=== PATIENT | female | born 1960 | race Caucasian/White ===

== ENCOUNTER 2017-03-13 10:46 | Day surgery (SDC) | payer BC ==
[2017-03-12 09:13] VITALS: BMI 36.3
[~2017-03-13 10:46] MED LIST: LACTATED RINGERS 1,000 ML IV SCH
[2017-03-13 11:15] VITALS: RESP 16; TEMP 97
[2017-03-13] MEDS ORDERED: LIDOCAINE 1% 20 ML VIAL (10MG/ML) FOR IV START INTRADERMA ONE (11:20)
[2017-03-13] MEDS ORDERED: PROPOFOL 10 MG/ML 20 ML VIAL IV ONE (11:57)
--- NOTE | 2017-03-13 12:23 | P.PCN ---
Date of Procedure: 03/13/17 Preoperative Diagnosis: Postoperative Diagnosis: Procedure(s) Performed: Procedure: Colonoscopy and polypectomy. Preoperative diagnosis: Screening for neoplasia, patient has history of polyps. Postoperative diagnosis: Small cecal polyp snared but no large polyps or cancer. Preparation: HalfLytely prep. Sedation: Was provided by anesthesia. Brief clinical history: The patient is a 56-year-old female who is scheduled for this evaluation because of history of polyps. Her last exam was in May 2012. The patient has no abdominal complaints, bleeding or anemia. Procedure: With the patient on her left lateral decubitus position and after informed consent and adequate sedation, the perianal area was inspected and it did not show any fissures or fistulas. There were no masses felt on digital rectal examination. The Olympus CFQ 160L video colonoscope was then inserted in the rectum in the usual fashion and advanced to the cecum. There was a small polyp in the cecum which I snared and retrieved by suction but there were no large polyps or cancer. The mucosa appeared healthy. No obvious diverticular disease or other pathology. The patient tolerated the procedure well. Plan: The patient was reassured. She will follow-up with you as planned and I recommended repeat exam in 5 years. Implants: Indications for Procedure: Operative Findings: Description of Procedure:
[2017-03-13 12:40] VITALS: BP 123/81; PULSE 74
== END 2017-03-13 13:07 | disposition home or self-care (01) ==
LOC: ORWHC2ENDO 10:46
DX: Z12.11 Encounter for screening for malignant neoplasm of colon (principal); D12.0 Benign neoplasm of cecum; Z86.010 Personal history of colon polyps; K21.9 Gastro-esophageal reflux disease without esophagitis; J45.909 Unspecified asthma, uncomplicated; M19.90 Unspecified osteoarthritis, unspecified site; K58.9 Irritable bowel syndrome, unspecified; E07.9 Disorder of thyroid, unspecified; Z79.899 Other long term (current) drug therapy; Z79.51 Long term (current) use of inhaled steroids; Z79.82 Long term (current) use of aspirin; Z88.1 Allergy status to other antibiotic agents; Z88.7 Allergy status to serum and vaccine
CPT/HCPCS: 88305; 45385; J2704

== ENCOUNTER → 2019-08-27 | Outpatient (CLI) | payer BC ==
--- NOTE | 2019-08-27 10:26 | US ---
EXAMINATION TYPE: US abdomen complete DATE OF EXAM: 08/27/2019 COMPARISON: CT 2013, & US 2014 CLINICAL HISTORY: R11.0 nausea. EXAM MEASUREMENTS: Liver Length: 10.9 cm Gallbladder Wall: 0.3 cm CBD: 0.5 cm Spleen: 10.2 cm Right Kidney: 11.3 x 4.3 x 4.7 cm Left Kidney: 11.5 x 4.5 x 5.4 cm Technically difficult study due to patient body habitus and midline bowel gas. Pancreas: not visualized due to midline bowel gas Liver: wnl Gallbladder: No stones seen Evidence for sonographic Campbell's sign: No CBD: wnl Spleen: wnl Right Kidney: No hydronephrosis or masses seen Left Kidney: No hydronephrosis or masses seen Upper IVC: wnl Abd Aorta: wnl The liver is homogenous. The intrahepatic portion of the IVC and proximal abdominal aorta are within normal limits. There is no evidence of cholelithiasis. Common bile duct is unremarkable. Suboptima l evaluation of pancreas on the images saved due to patient's body habitus and overlying bowel gas. The spleen is unremarkable. Kidneys are symmetric and free of hydronephrosis. No renal lesions are seen. IMPRESSION: Slightly suboptimal study without suspicious acute findings seen.
== END | disposition home or self-care (01) ==
LOC: RADUSWWP 09:37
PROVIDERS: ATTEND Internal Medicine
DX: R11.0 Nausea (principal)
CPT/HCPCS: 76700

== ENCOUNTER → 2019-09-14 | Outpatient (CLI) | payer BC ==
--- NOTE | 2019-09-15 11:30 | MM ---
Reason for exam: screening (asymptomatic). Last mammogram was performed 3 years and 3 months ago. History: Patient is postmenopausal and is nulliparous. Family history of breast cancer in 2 paternal aunts. Physical Findings: A clinical breast exam by your physician is recommended on an annual basis and results should be correlated with mammographic findings. MG Screening Mammo w CAD Bilateral CC and MLO view(s) were taken. Prior study comparison: June 14, 2016, bilateral MG screening mammo w CAD. June 14, 2015, bilateral MG screening mammo w CAD. The breast tissue is heterogeneously dense. This may lower the sensitivity of mammography. No significant changes when compared with prior studies. ASSESSMENT: Benign, BI-RAD 2 RECOMMENDATION: Routine screening mammogram of both breasts in 1 year.
== END ==
LOC: RADMAMWWP 14:08
PROVIDERS: ATTEND Internal Medicine
DX: Z12.31 Encounter for screening mammogram for malignant neoplasm of breast (principal)
CPT/HCPCS: 77067

== ENCOUNTER → 2020-10-30 | Outpatient (CLI) | payer BC ==
--- NOTE | 2020-10-30 18:43 | BD ---
EXAMINATION TYPE: Axial Bone Density DATE OF EXAM: 10/30/2020 COMPARISON: 06.14.2016 CLINICAL HISTORY: 60 YR OLD FEMALE....ICD-10 CODE: M89.9 DISORDER OF BONE Height: 64 Weight: 194 FRAX RISK QUESTIONS: Glucocorticoids (More than 3mos): YES (Ex: prednisone, prednisolone, methylprednisolone, dexamethasone, and hydrocortisone). History of Fracture in Adulthood: YES RISK FACTORS HISTORY OF: HX OF RT TIB FIB FX, Diet low in dairy products/other sources of calcium: YES, LACTOSE INTOLERANT Postmenopausal woman: YES AT ABOUT 51 YRS OLD Hyperparathyroidism: NO Adrenal Insufficiency: NO MEDICATIONS: Prednisone or other steroids: YES, FOR ASTHMA Thyroid Medications: YES, SYNTHROID, FOR ABOUT SINCE AGE 16 YRS OLD Additional Medications: BETA LUCIO, BP MEDS, BUPROPION, LEXAPRO, REFLUX MEDS, VIT D AND CALCIUM Additional History: HEART TROUBLE, HYPERTENSION, REFLUX, EXAM MEASUREMENTS: Bone mineral densitometry was performed using the Unocoin System. Bone mineral density as measured about the Lumbar spine is: ----- L1-L4(G/cm2): 1.069 T Score Values are as follows: ----- L1: -1.5 ----- L2: -1.5 ----- L3: -0.1 ----- L4: -0.8 ----- L1-L4: -0.9 Bone mineral density has: Increased 1.4% SINCE...06.14.2016 STUDY Bone mineral density about the R hip (g/cm2): 0.726 Bone mineral density about the L hip (g/cm2): 0.810 T Score values are as follows: -----R Neck: -2.6 -----L Neck: -2.3 -----R Total: -2.2 -----L Total: -1.6 Bone mineral density has: Decreased -5.8% SINCE....:06.14.2016 STUDY FRAX%s: THERE IS A 29.9% CHANCE FOR A MAJOR OSTEOPOROTIC FX AND A 7.2% FOR HIP......PROBABILITY FO R FX IN 10 YRS TIME IMPRESSION: Osteoporosis (T Score less than -2.5). There is increased fracture risk and therapy is usually indicated based on age. Re-Screen 1-2 years. NOTE: T-SCORE=SD OF THE YOUNG ADULT MEAN.
== END | disposition home or self-care (01) ==
LOC: RADMAMWWP 09:29
PROVIDERS: ATTEND Internal Medicine
DX: M81.0 Age-related osteoporosis without current pathological fracture (principal)
CPT/HCPCS: 77067; 77080

== ENCOUNTER → 2021-12-04 | Outpatient (CLI) | payer BC ==
--- NOTE | 2021-12-07 09:44 | MM ---
Reason for exam: screening (asymptomatic). Last mammogram was performed 1 year and 1 month ago. History: Patient is postmenopausal and is nulliparous. Family history of breast cancer in 2 paternal aunts. Physical Findings: A clinical breast exam by your physician is recommended on an annual basis and results should be correlated with mammographic findings. MG Screening Mammo w CAD Bilateral CC and MLO view(s) were taken. Prior study comparison: October 30, 2020, bilateral MG screening mammo w CAD. September 14, 2019, bilateral MG screening mammo w CAD. The breast tissue is heterogeneously dense. This may lower the sensitivity of mammography. No significant changes when compared with prior studies. ASSESSMENT: Benign, BI-RAD 2 RECOMMENDATION: Routine screening mammogram of both breasts in 1 year.
== END | disposition home or self-care (01) ==
LOC: RADMAMWWP 15:15
PROVIDERS: ATTEND Internal Medicine
DX: Z12.31 Encounter for screening mammogram for malignant neoplasm of breast (principal)
CPT/HCPCS: 77067

== ENCOUNTER 2022-08-11 11:48 | Emergency (ER) | payer BC ==
[2022-08-11 11:59] VITALS: PULSE 102; RESP 20; TEMP 97
[2022-08-11 12:03] VITALS: BP 91/60
--- NOTE | 2022-08-11 12:04 | ED ---
Upper Extremity HPI - General Source: patient, RN notes reviewed Mode of arrival: ambulatory Limitations: no limitations <Greg Sue - Last Filed: 08/11/22 12:03> <Maurisio Block - Last Filed: 08/11/22 13:12> - General Chief Complaint: Extremity Injury, Upper Stated Complaint: rt wrist injury Time Seen by Provider: 08/11/22 12:01 - History of Present Illness Initial Comments: 62-year-old female presents emergency Department with chief complaint of fall, right wrist injury. Patient recent fracture of this area and saw Dr. Dawson Patient states that she tripped and fell onto her wrist and had increasing pain. Patient presented emergency department with complaints of right wrist pain no head injury no loss conscious. (Greg Sue) - Related Data Home Medications Medication Instructions Recorded Confirmed Escitalopram [Lexapro] 10 mg PO HS 05/25/14 03/13/17 Fluticasone Propionate [Flovent 1 puff INHALATION BID 05/25/14 03/13/17 Hfa 110mcg] buPROPion HCL [Wellbutrin SR] 200 mg PO QAM 05/25/14 03/13/17 Albuterol Inhaler [Ventolin Hfa 1 - 2 puff INHALATION Q6HR PRN 03/12/17 03/13/17 Inhaler] Aspirin 81 mg PO DAILY 03/12/17 03/13/17 Calcium Carbonate/Vitamin D3 2 each PO DAILY 03/12/17 03/13/17 [Calcium 600-Vit D3 500 Softgel] Levothyroxine Sodium [Levoxyl] 50 mcg PO QAM 03/12/17 03/13/17 Metoprolol Succinate (ER) [Toprol 25 mg PO QAM 03/12/17 03/13/17 Xl] Montelukast Sodium [Singulair] 10 mg PO HS 03/12/17 03/13/17 Omeprazole 20 mg PO HS 03/12/17 03/13/17 Previous Rx's Medication Instructions Recorded Ibuprofen [Motrin] 600 mg PO Q6HR PRN #20 tab 08/11/22 Allergies Allergy/AdvReac Type Severity Reaction Status Date / Time erythromycin base Allergy Unknown Verified 03/13/17 11:04 [Erythromycin Base] influenza virus vaccine, Allergy Rash/Hives Verified 03/13/17 11:04 specific [Influenza Virus Vacc,Specific] Tetanus Vaccines and Toxoid Allergy Rash/Hives Verified 03/13/17 11:04 [Tetanus Vaccines & Toxoid] lactose intolerant AdvReac Abdominal Uncoded 03/13/17 11:04 Pain Review of Systems ROS Other: All systems not noted in ROS Statement are negative. <Greg Sue - Last Filed: 08/11/22 12:03> ROS Other: All systems not noted in ROS Statement are negative. <Maurisio Block - Last Filed: 08/11/22 13:12> ROS Statement: Those systems with pertinent positive or pertinent negative responses have been documented in the HPI. Past Medical History Past Medical History: Asthma, GERD/Reflux, Osteoarthritis (OA), Pneumonia, Syncope, Thyroid Disorder Additional Past Medical History / Comment(s): Irregular heartbeat,IBS History of Any Multi-Drug Resistant Organisms: None Reported Past Surgical History: Adenoidectomy, Orthopedic Surgery, Tonsillectomy Past Anesthesia/Blood Transfusion Reactions: No Reported Reaction Past Psychological History: Anxiety, Depression Past Alcohol Use History: None Reported Past Drug Use History: None Reported - Past Family History Father Family Medical History: Cancer, Hypertension Additional Family Medical History / Comment(s): lung Mother Family Medical History: Cancer, Hypertension Additional Family Medical History / Comment(s): lung <RohiniGreg nelson - Last Filed: 08/11/22 12:03> General Exam Limitations: no limitations <Greg Sue - Last Filed: 08/11/22 12:03> General appearance: alert, anxious Head exam: Present: atraumatic, normocephalic, normal inspection Eye exam: Present: normal appearance, PERRL, EOMI. Absent: scleral icterus, conjunctival injection, periorbital swelling ENT exam: Present: normal exam, mucous membranes moist Neck exam: Present: normal inspection, full ROM. Absent: tenderness, meningismus, lymphadenopathy Respiratory exam: Absent: chest wall tenderness Cardiovascular Exam: Present: regular rate Extremities exam: Present: tenderness, normal capillary refill, other (MH the right upper extremity demonstrates tenderness palpation of the medial and lateral wrist with a distal radius ulna. No definitive displacement good capillary refill good sensory no deficits noted. Pulses are equal bilaterally no tenderness proximal to the right wrist. Examination right lowe). Absent: full ROM Back exam: Present: full ROM Neurological exam: Present: alert, oriented X3, CN II-XII intact Psychiatric exam: Present: normal affect, normal mood Skin exam: Present: warm, dry. Absent: intact <Maurisio Block - Last Filed: 08/11/22 13:12> - General Exam Comments Initial Comments: This is a well-developed well-nourished awake alert oriented 4 female with a [place] Coma Scale of 15 (UmairMaurisio) Course <Maurisio Block - Last Filed: 08/11/22 13:12> Vital Signs 08/11/22 11:54 Temperature 97 F L Pulse Rate 102 H Respiratory 20 Rate Blood Pressure 91/60 O2 Sat by Pulse 97 Oximetry - Reevaluation(s) Reevaluation #1: 08/11/22 13:11 HPI the abrasion patient was going out into her garage when she tripped and fell onto her outstretched right hand. She states she had previously broken right wrist was currently being treated and follow-up for it. She had no head neck or back pain no complaints of any other injuries other than she did have an abrasion to her right knee. She was able ambulate later. Also though she did apparently had a vasovagal episode in the triage area prior to arrival here. (UmairMaurisio) Procedures - Orthopedic Splinting/Casting Injury #1 Upper Extremity Injury Location: short arm, wrist Upper Extremity Immobilizer: volar splint <Maurisio Block - Last Filed: 08/11/22 13:12> - Orthopedic Splinting/Casting Injury #1 Additional Comments: Good sensorimotor and neurovascular exam afterwards patient did tolerate this well. The wrist was adequately wrapped with [place] roll prior to the floor by 15 OCL placement. (UmairMaurisio) Medical Decision Making <Maurisio Block - Last Filed: 08/11/22 13:12> - Medical Decision Making Patient was given pain medication orally after the placement of a splint. Patient does have a reaction to tetanus vaccines and toxoids. She believes she is within 20 years of her last shot she would rather not have one today. Patient will be discharged and follow-up with Dr. Dawson [facility]. Patient was previously being to defer prior fracture. Was pt. sent in by a medical professional or institution (, PA, [facility], urgent care, hospital, or care home...) When possible be specific @ -[No] Did you speak to anyone other than the patient for history (EMS, parent, family, police, friend...)? What history was obtained from this source @ -[No] Did you review nursing and triage notes (agree or disagree)? Why? @ Yes and agree -[I reviewed and agree with nursing and triage notes] Were old charts reviewed (outside hosp., previous admission, EMS record, old EKG, old radiological studies, urgent care reports/EKG's, care home records)? Report findings @ -[No old charts were reviewed] Differential Diagnosis (chest pain, altered mental status, abdominal pain women, abdominal pain men, vaginal bleeding, weakness, fever, dyspnea, syncope, headache, dizziness, GI bleed, back pain, seizure, CVA, palpatations, mental health)? @ -[not applicable] EKG interpreted by me (3pts min.). @ -[As above] X-rays interpreted by me (1pt min.). @ I did interpret the x-ray evidence of distal radius old fracture with some dorsal displacement -[None done] CT interpreted by me (1pt min.). @ -[None done] U/S interpreted by me (1pt. min.). @ -[None done] What testing was considered but not performed or refused? (CT, X-rays, U/S, labs)? Why? @ -[None] What meds were considered but not given or refused? Why? @ -[None] Did you discuss the management of the patient with other professionals (professionals i.e. , PA, [facility], lab, RT, psych nurse, vp digital marketing social media and crm, wood tile installer, teacher, credit risk review officer, case management social worker)? Give summary @ -[No] Was smoking cessation discussed for >3mins.? @ -[No] Was critical care preformed (if so, how long)? @ -[No] Were there social determinants of health that impacted care today? How? (Homelessness, low income, unemployed, alcoholism, drug addiction, transportation, low edu. Level, literacy, decrease access to med. care, longterm, rehab)? @ -[No] Was there de-escalation of care discussed even if they declined (Discuss DNR or withdrawal of care, Hospice)? DNR status @ -[No] What co-morbidities impacted this encounter? (DM, HTN, Smoking, COPD, CAD, Cancer, CVA, ARF, Chemo, Hep., AIDS, mental health diagnosis, sleep apnea, morbid obesity)? @ -[None] Was patient admitted / discharged? Hospital course, mention meds given and route, prescriptions, significant lab abnormalities, going to OR and other pertinent info. @ Patient was discharged with outpatient follow-up with orthopedic surgery.- [hospital course] Undiagnosed new problem with uncertain prognosis? @ -[No] Drug Therapy requiring intensive monitoring for toxicity (Heparin, Nitro, Insulin, Cardizem)? @ -[No] Were any procedures done? @ -[No] Diagnosis/symptom? @ Distal radius ulna fracture right side, fall-[default] Acute, or Chronic, or Acute on Chronic? @ Acute-[default] Uncomplicated (without systemic symptoms) or Complicated (systemic symptoms)? @ -[default] Side effects of treatment? @ -[No] Exacerbation, Progression, or Severe Exacerbation? @ -[No] Poses a threat to life or bodily function? How? (Chest pain, [place], [place], pneumonia, PE, COPD, DKA, ARF, appy, cholecystitis, CVA, Diverticulitis, Homicidal, Suicidal, threat to staff... and all critical care pts) @ -[No] (Maurisio Block) - Radiology Data Interpreted by me: I did interpret the imaging evidence of a distal radius and ulna fracture with slight dorsal angulation (Maurisio Block) Disposition <Greg Sue - Last Filed: 08/11/22 12:03> Is patient prescribed a controlled substance at d/c from ED?: No Decision Date: 08/11/22 Decision Time: 13:12 <Maurisio Block - Last Filed: 08/11/22 13:12> Clinical Impression: Right wrist fracture, Fall, Abrasion, right knee, initial encounter Disposition: HOME SELF-CARE Condition: Good Instructions (If sedation given, give patient instructions): Wrist Fracture in Adults (ED), Abrasion (ED) Prescriptions: Ibuprofen [Motrin] 600 mg PO Q6HR PRN #20 tab PRN Reason: Pain Referrals: Max Gates MD [Primary Care Provider] - 1-2 days Mario Dawson MD [STAFF PHYSICIAN] - 1-2 days
--- NOTE | 2022-08-11 12:40 | XR ---
EXAMINATION TYPE: XR wrist complete RT DATE OF EXAM: 08/11/2022 12:24 PM INDICATION: Patient age:Female; 62 years old; Reason for study: pain; COMPARISON: None TECHNIQUE: right wrist was examined in the. Frontal, navicular, lateral, and oblique. FINDINGS: Comminuted distal intra-articular radius fracture and ulna styloid process fracture. Radius is dorsally angulated. There is mild displacement up to 2 mm. There is soft tissue swelling around t he wrist. The ulna is mildly displaced up to 2 mm. Diffuse osseous demineralization. IMPRESSION: 1. Comminuted distal radius fracture with intra-articular extension. Mild shortening and dorsal angu lation. 2. Distal ulna styloid process fracture with mild displacement.
[2022-08-11] MEDS ORDERED: HYDROcodone/APAP 7.5-325MG 1 EACH TAB PO ONE (12:44)
== END 2022-08-11 13:23 | disposition home or self-care (01) ==
LOC: EC 11:48
DX: S62.101A Fracture of unspecified carpal bone, right wrist, initial encounter for closed fracture (principal); S80.211A Abrasion, right knee, initial encounter; J45.909 Unspecified asthma, uncomplicated; K21.9 Gastro-esophageal reflux disease without esophagitis; M19.90 Unspecified osteoarthritis, unspecified site; Z79.51 Long term (current) use of inhaled steroids; Z79.82 Long term (current) use of aspirin; Z79.899 Other long term (current) drug therapy; Z88.1 Allergy status to other antibiotic agents; Z88.7 Allergy status to serum and vaccine; Z88.8 Allergy status to other drugs, medicaments and biological substances; W01.0XXA Fall on same level from slipping, tripping and stumbling without subsequent striking against object, initial encounter
CPT/HCPCS: 29125; 99283

== ENCOUNTER → 2022-11-04 | Outpatient (CLI) | payer BC ==
--- NOTE | 2022-11-04 17:13 | XR ---
EXAMINATION TYPE: XR chest 2V DATE OF EXAM: 11/04/2022 4:28 PM COMPARISON: Chest radiographs from 11/04/2022 TECHNIQUE: XR chest 2V Frontal and lateral views of the chest. CLINICAL INDICATION:Female, 62 years old with history of M75.41; FINDINGS: Lungs/Pleura: There is no evidence of pleural effusion, focal consolidation, or pneumothorax. Pulmonary vascularity: Unremarkable. Heart/mediastinum: Cardiomediastinal silhouette is unremarkable. Musculoskeletal: No acute osseous pathology. IMPRESSION: No acute cardiopulmonary disease/process. (The right lung is clear)
== END | disposition home or self-care (01) ==
LOC: RADXRMAIN 16:08
PROVIDERS: ATTEND Orthopaedic Surgery
DX: M75.41 Impingement syndrome of right shoulder (principal); S52.571A Other intraarticular fracture of lower end of right radius, initial encounter for closed fracture; S52.611D Displaced fracture of right ulna styloid process, subsequent encounter for closed fracture with routine healing; S46.001D Unspecified injury of muscle(s) and tendon(s) of the rotator cuff of right shoulder, subsequent encounter
CPT/HCPCS: 71046

== ENCOUNTER → 2023-01-15 | Outpatient (CLI) | payer BC ==
--- NOTE | 2023-01-15 18:26 | BD ---
EXAMINATION TYPE: Axial Bone Density DATE OF EXAM: 01/15/2023 CLINICAL HISTORY: 62 years old Female. ICD-10 CODE: M81.0 AGE-RELATED OSTEOPOROSIS Height: 63.5 in Weight: 189 lbs FRAX RISK QUESTIONS: History of Fracture in Adulthood: age 32 rt ankle fx, age 61 rt wrist fx RISK FACTORS HISTORY OF: Active: yes Diet low in dairy products/other sources of calcium: yes Postmenopausal woman: age 50 MEDICATIONS: Thyroid Medications: yes Which medication: Levothyroxine How Lon+ years Osteoporosis Medications: not now Which medication: Actonel How Lon months Additional Medications: calcium, vit d,asthma inhaler, metoprolol,depression meds, acid reflux meds, allergy meds, low dose aspirin, EXAM MEASUREMENTS: Bone mineral densitometry was performed using the [employer] System. Bone mineral density as measured about the Lumbar spine is: ----- L1-L4(G/cm2): 1.027 T Score Values are as follows: ----- L1: -2.5 ----- L2: -1.4 ----- L3: -0.6 ----- L4: -0.8 ----- L1-L4: -1.3 Z Score Values are as follows: ----- L1: -1.8 ----- L2: -0.7 ----- L3: 0.1 ----- L4: -0.1 ----- L1-L4: Bone mineral density has: Decreased -3.9% since study of: 10/30/2020 Bone mineral density about the R hip (g/cm2): 0.750 Bone mineral density about the L hip (g/cm2): 0.825 T Score values are as follows: -----R Neck: -2.5 -----L Neck: -2.5 -----R Total: -2.0 -----L Total: -1.4 Z Score values are as follows: -----R Neck: -1.6 -----L Neck: -1.6 -----R Total: -1.5 -----L Total: -0.9 Bone mineral density has: Increased 2.6% since study of: 10/30/2020 FRAX%s: The graph provided illustrates a 19.6% chance for a major osteoporotic fx and a 3.9% chance f or the hips probability for fx in 10 years time. IMPRESSION: Osteopenia (T Score between -2.5 and -1). There is slightly increased risk of fracture and the patient may be considered for treatment. Re-Screen 2-5 years. NOTE: T-SCORE=SD OF THE YOUNG ADULT MEAN.
--- NOTE | 2023-01-16 08:12 | MM ---
Reason for Exam: Screening (asymptomatic). Last mammogram was performed 1 year(s) and 1 month(s) ago. Patient History: Menarche at age 12. Patient has no children. Postmenopausal. Paternal aunt had breast cancer. Paternal aunt had breast cancer. Risk Values: Susanna 5 year model risk: 1.7%. NCI Lifetime model risk: 7.7%. Prior Study Comparison: 09/14/2019 Bilateral Screening Mammogram, [facility]. 10/30/2020 Bilateral Screening Mammogram, [facility]. 12/04/2021 Bilateral Screening Mammogram, [facility]. Tissue Density: There are scattered fibroglandular densities. Findings: Analyzed By CAD. There is no suspicious group of microcalcifications or new suspicious mass in either breast. Overall Assessment: Negative, BI-RAD 1 Management: Screening Mammogram of both breasts in 1 year. . Patient should continue monthly self-breast exams. A clinical breast exam by your physician is recommended on an annual basis. This exam should not preclude additional follow-up of suspicious palpable abnormalities. Note on Susanna scores and lifetime risk: 1. A Susanna score greater than 3% is considered moderate risk. If this is the case, consider specialist referral to assess eligibility for a risk reducing agent. 2. If overall lifetime risk for the development of breast cancer is 20% or higher, the patient may qualify for future screening with alternating mammogram and breast MRI. Electronically signed and approved by: Paul Martinez M.D. Radiologis
== END | disposition home or self-care (01) ==
LOC: RADMAMWWP 10:31
PROVIDERS: ATTEND Internal Medicine
DX: Z12.31 Encounter for screening mammogram for malignant neoplasm of breast (principal); M81.0 Age-related osteoporosis without current pathological fracture; M85.89 Other specified disorders of bone density and structure, multiple sites; Z78.0 Asymptomatic menopausal state; Z80.3 Family history of malignant neoplasm of breast
CPT/HCPCS: 77067; 77080

== ENCOUNTER → 2024-01-19 | Outpatient (CLI) | payer BC ==
--- NOTE | 2024-01-19 14:10 | MM ---
Reason for Exam: Screening (asymptomatic). Last screening mammogram was performed 12 month(s) ago. Patient History: Menarche at age 12. Patient has no children. Postmenopausal. Paternal aunt had breast cancer. Paternal aunt had breast cancer. Risk Values: Susanna 5 year model risk: 1.7%. NCI Lifetime model risk: 7.4%. Prior Study Comparison: 06/14/2016 Bilateral Screening Mammogram, [facility]. 09/14/2019 Bilateral Screening Mammogram, [facility]. 10/30/2020 Bilateral Screening Mammogram, [facility]. 12/04/2021 Bilateral Screening Mammogram, [facility]. 01/15/2023 Bilateral MG screening mammo w CAD, [facility]. Tissue Density: The breasts are heterogeneously dense, which may obscure small masses. Findings: Analyzed By CAD. Right breast: There is no suspicious group of microcalcifications or new suspicious mass. Left breast: There is no suspicious group of microcalcifications or new suspicious mass. Overall Assessment: Negative, BI-RAD 1 Management: Screening Mammogram of both breasts in [address] [facility] will attempt to contact patient to return for supplemental views and ultrasound if indicated. Patient should continue monthly self-breast exams. A clinical breast exam by your physician is recommended on an annual basis. This exam should not preclude additional follow-up of suspicious palpable abnormalities. Note on Susanna scores and lifetime risk: 1. A Susanna score greater than 3% is considered moderate risk. If this is the case, consider specialist referral to assess eligibility for a risk reducing agent. 2. If overall lifetime risk for the development of breast cancer is 20% or higher, the patient may qualify for future screening with alternating mammogram and breast MRI. Electronically signed and approved by: Maurisio Roque DO
== END | disposition home or self-care (01) ==
LOC: RADMAMWWP 12:45
PROVIDERS: ATTEND Internal Medicine
DX: Z12.31 Encounter for screening mammogram for malignant neoplasm of breast (principal); Z78.0 Asymptomatic menopausal state; Z80.3 Family history of malignant neoplasm of breast
CPT/HCPCS: 77063; 77067

== ENCOUNTER → 2024-02-17 | Outpatient (CLI) | payer BC ==
--- NOTE | 2024-02-17 21:50 | XR ---
EXAMINATION TYPE: XR Hip Complete LT DATE OF EXAM: 02/17/2024 COMPARISON: 09/30/2012 HISTORY: Pain TECHNIQUE: 2V left hip FINDINGS: Femoral head articulates with the acetabulum. Joint space is preserved. No acute fracture o r dislocation evident. IMPRESSION: 1. No acute osseous abnormality left hip
== END | disposition home or self-care (01) ==
LOC: RADXRMAIN 11:50
PROVIDERS: ATTEND Internal Medicine
DX: M25.552 Pain in left hip (principal)
CPT/HCPCS: 73502

== ENCOUNTER 2025-02-02 10:39 | Day surgery (SDC) | payer BC ==
[2025-01-31 14:35] VITALS: BMI 32.5
[2025-02-02] MEDS: IV FLUID CONTINUATION 1,000 ML IV ONE (10:56)
[2025-02-02 11:15] VITALS: TEMP 98
[2025-02-02] MEDS: LACTATED RINGERS 1,000 ML IV SCH (11:16)
[2025-02-02] MEDS ORDERED: LIDOCAINE 1% INJ 10MG/ML (20 ML MDV) ONE (12:43)
[2025-02-02] MEDS ORDERED: PROPOFOL 10 MG/ML 20 ML VIAL IV ONE (12:43)
--- NOTE | 2025-02-02 12:56 | P.PCN ---
Date of Procedure: 02/02/25 Implants: BRIEF HISTORY: Patient is a 64-year-old, pleasant, white female scheduled for an upper endoscopy as a part of evaluation of longstanding history of GERD.. PROCEDURE PERFORMED: Esophagogastroduodenoscopy with biopsy. PREOPERATIVE DIAGNOSIS: Longstanding history of GERD. IV sedation per anesthesia. PROCEDURE: After informed consent was obtained, the patient was brought into the endoscopy unit. IV sedation was administered by Anesthesia under continuous monitoring. Initially the Olympus GIF-140 video endoscope was inserted into the mouth. Esophagus intubated without any difficulty. It was gradually advanced into the stomach and duodenum and carefully examined. The bulb and the second part of the duodenum appeared normal. The scope at this time was withdrawn to the stomach, adequately insufflated with air, and upon careful examination, mucosa of the antrum, had patchy areas of erythema in the prepyloric area that was biopsied. Mucosa of the body, cardia and the fundus appeared normal. The scope was then withdrawn into the esophagus. The GE junction was located at 39 cm from the incisors. The esophagus appeared normal. There were no erosions or ulcerations seen and the patient tolerated the procedure well. IMPRESSION: 1. Small hiatal hernia but no evidence of esophagitis or Peters's esophagus. 2. Mild antral gastritis. RECOMMENDATIONS: The findings of this examination were discussed with the patient as well as her family. Follow-up with the biopsy results. She was advised to continue with Prilosec 20 mg daily and follow antireflux measures..
[2025-02-02 13:27] VITALS: BP 100/48; PULSE 72; RESP 17
== END 2025-02-02 14:07 | disposition home or self-care (01) ==
LOC: ORWHC2ENDO 10:39
PROVIDERS: ATTEND Internal Medicine Gastroenterology
DX: K29.50 Unspecified chronic gastritis without bleeding (principal); K21.9 Gastro-esophageal reflux disease without esophagitis; K44.9 Diaphragmatic hernia without obstruction or gangrene; K52.9 Noninfective gastroenteritis and colitis, unspecified; J45.909 Unspecified asthma, uncomplicated; I49.9 Cardiac arrhythmia, unspecified; F41.9 Anxiety disorder, unspecified; F32.A Depression, unspecified; Z88.1 Allergy status to other antibiotic agents; Z88.7 Allergy status to serum and vaccine; Z79.82 Long term (current) use of aspirin; Z79.890 Hormone replacement therapy; Z79.899 Other long term (current) drug therapy; Z89.611 Acquired absence of right leg above knee; Z89.612 Acquired absence of left leg above knee
CPT/HCPCS: 88305; 43239; J2003; J2704